=== PATIENT | male | born 1965 | race Caucasian/White ===

== ENCOUNTER 2022-04-12 18:38 | Inpatient (IN) | payer OTHER ==
[2022-04-12 22:10] VITALS: BMI 20.7
[2022-04-12] MEDS ORDERED: NICOTINE POLACRILEX 2 MG GUM BUC PRN (22:51)
[2022-04-12] MEDS ORDERED: P-EPHED 60MG/TRIPROLIDI 2.5MG TABLET PO PRN (22:51)
[2022-04-12] MEDS ORDERED: BISMUTH SUBSALICYLATE 524 MG/30 ML PO PRN (22:51)
[2022-04-12] MEDS ORDERED: MAG HYDROX/AL HYDROX/SIMETH 30 ML UNIT-DOSE CUP PO PRN (22:51)
[2022-04-12] MEDS ORDERED: IBUPROFEN 600 MG TABLET (FP) PO PRN (22:51)
[2022-04-12] MEDS ORDERED: MAGNESIUM CITRATE 300 ML BOTTLE PO PRN (22:51)
[2022-04-12] MEDS ORDERED: guaiFENesin 200 MG/10 ML 10 ML UNIT-DOSE CUPS PO PRN (22:51)
[2022-04-12] MEDS ORDERED: MAGNESIUM HYDROX 2400MG/30ML ORAL SUSPENSION 30 ML CUP PO PRN (22:51)
[2022-04-12] MEDS ORDERED: LOPERAMIDE HCL 2 MG CAPSULE PO PRN (22:51)
[2022-04-12] MEDS ORDERED: ONDANSETRON *ODT* 4 MG TABLET SL PRN (22:51)
[2022-04-12] MEDS ORDERED: IBUPROFEN 400 MG TABLET (FP) PO PRN (22:51)
[2022-04-12] MEDS ORDERED: ACETAMINOPHEN 325 MG TABLET (FP) PO PRN ×2 (22:51)
[2022-04-12] MEDS ORDERED: BENZOCAINE/MENTHOL (CHLORASEPTIC ) LOZENGE MM PRN (22:51)
[2022-04-13] MEDS: diazePAM 5 MG TABLET PO SCH ×5 (03:34→22:16)
[2022-04-13] MEDS: diazePAM 5 MG TABLET PO PRN (06:06)
[2022-04-13 09:56] LABS: CALCIUM 9.1 mg/dL (8.5-10.1)
[2022-04-13 09:57] LABS: ALBUMIN 3.6 g/dl (3.4-5.0); BLOOD UREA NITROGEN 7.4 mg/dL (7-18)
[2022-04-13 10:00] LABS: CREATININE 0.6 mg/dL (0.55-1.3); HEMATOCRIT 30.8 % (35.4-49); HEMOGLOBIN 10.5 GM/dL (11.7-16.9); MCH 30.5 pg (25.7-33.7); MCHC 34.1 g/dl (32.0-35.9); MEAN CELL VOLUME 89.5 fl (80-96); MEAN PLT VOLUME 7.8 fl (7.5-11.1); PLATELET COUNT 351 10^3/uL (134-434); RBC 3.44 M/mm3 (4.00-5.60); RDW 16.9 % (11.9-15.9); WHITE BLOOD COUNT 10.2 K/mm3 (4.0-10.0)
[2022-04-13 10:02] LABS: BILIRUBIN,TOTAL 0.8 mg/dL (0.2-1); TOT PROT 7.1 g/dl (6.4-8.2)
[2022-04-13] MEDS: PRENATAL VITAMINS W/ FOLIC ACID TABLET (FP) PO SCH (10:57)
[2022-04-13] MEDS: METHOCARBAMOL 500 MG TABLET PO PRN ×2 (10:57→17:42)
[2022-04-13] MEDS: hydrOXYzine PAMOATE 25 MG CAPSULE (FP) PO PRN ×2 (10:57→22:15)
[2022-04-13] MEDS: NICOTINE 10 MG CARTRIDGE (INHALER) IH PRN (11:00)
[2022-04-13] MEDS: DICYCLOMINE HCL 10 MG CAPSULE PO PRN (17:42)
[2022-04-13] MEDS: MELATONIN 5 MG TABLETS PO SCH (22:15)
[2022-04-13] MEDS: THIAMINE HCL 100 MG TABLET (FP) PO SCH (22:15)
[2022-04-14] MEDS: diazePAM 5 MG TABLET PO SCH ×3 (05:44→22:20)
[2022-04-14] MEDS: PRENATAL VITAMINS W/ FOLIC ACID TABLET (FP) PO SCH (10:53)
[2022-04-14] MEDS: METHOCARBAMOL 500 MG TABLET PO PRN (10:58)
[2022-04-14] MEDS ORDERED: cloNIDine HCL 0.1 MG TABLET PO PRN (14:59)
[2022-04-14] MEDS: DICYCLOMINE HCL 10 MG CAPSULE PO PRN (18:16)
[2022-04-14] MEDS: MELATONIN 5 MG TABLETS PO SCH (22:19)
[2022-04-14] MEDS: THIAMINE HCL 100 MG TABLET (FP) PO SCH (22:20)
[2022-04-15] MEDS: diazePAM 5 MG TABLET PO PRN ×3 (00:47→22:03)
[2022-04-15] MEDS: METHOCARBAMOL 500 MG TABLET PO PRN (00:48)
[2022-04-15] MEDS: ACETAMINOPHEN 325 MG TABLET (FP) PO PRN ×2 (00:49→19:05)
[2022-04-15] MEDS: diazePAM 5 MG TABLET PO SCH ×2 (05:46→17:33)
[2022-04-15] MEDS: PRENATAL VITAMINS W/ FOLIC ACID TABLET (FP) PO SCH (10:09)
[2022-04-15 20:45] VITALS: TEMP 97.3
[2022-04-15] MEDS: MELATONIN 5 MG TABLETS PO SCH (22:03)
[2022-04-15] MEDS: THIAMINE HCL 100 MG TABLET (FP) PO SCH (22:03)
[2022-04-16] MEDS ORDERED: diazePAM 5 MG TABLET PO ONE (06:00)
[2022-04-16 09:14] VITALS: BP 126/77; PULSE 89
[2022-04-16] MEDS: PRENATAL VITAMINS W/ FOLIC ACID TABLET (FP) PO SCH (10:21)
[2022-04-16] MEDS: NICOTINE 10 MG CARTRIDGE (INHALER) IH PRN (11:33)
[2022-04-16 14:32] LABS: BASO % 0.5 % (0-2.0); EOS % 3.7 % (0-4.5); HEMATOCRIT 33.3 % (35.4-49); HEMOGLOBIN 11.2 GM/dL (11.7-16.9); LYMPH % 15.8 % (8-40); MCH 30.8 pg (25.7-33.7); MCHC 33.6 g/dl (32.0-35.9); MEAN CELL VOLUME 91.5 fl (80-96); MEAN PLT VOLUME 7.9 fl (7.5-11.1); MONO % 10.5 % (3.8-10.2); NEUT % 69.5 % (42.8-82.8); PLATELET COUNT 334 10^3/uL (134-434); RBC 3.64 M/mm3 (4.00-5.60); RDW 17.2 % (11.9-15.9); WHITE BLOOD COUNT 8.5 K/mm3 (4.0-10.0)
[2022-04-16 14:49] LABS: SGOT/AST 18 U/L (15-37)
[2022-04-16 14:52] LABS: ALK PHOS 177 U/L (45-117)
== END 2022-04-16 13:00 | disposition home or self-care (01) | DRG 775 ==
LOC: YASAS 18:38 → Y3N 04-13 01:33
PROVIDERS: ADMIT Allergy & Immunology; ATTEND Surgery
PROC: HZ2ZZZZ Detoxification Services for Substance Abuse Treatment (ICD-10-PCS; principal; 2022-04-13)
DX: F10.230 Alcohol dependence with withdrawal, uncomplicated (principal); F17.210 Nicotine dependence, cigarettes, uncomplicated; F41.1 Generalized anxiety disorder; D64.9 Anemia, unspecified; D72.829 Elevated white blood cell count, unspecified; R74.01 Elevation of levels of liver transaminase levels; R74.8 Abnormal levels of other serum enzymes; R03.0 Elevated blood-pressure reading, without diagnosis of hypertension
CPT/HCPCS: 36415; 80053; 84075; 84450; 85025; 85027; 86780; C9803-CS; Q0162; U0003; U0005